=== PATIENT | female | born 1960 ===

== ENCOUNTER 2024-08-16 13:30 | Day surgery (SDC) | payer OTHER ==
[2024-08-12 09:49] VITALS: BP 131/78
[~2024-08-16] VITALS: Ht 157.5 cm; Wt 51.7 kg
[~2024-08-16 13:30] MED LIST: CRESTOR40 MG PO; SYNTHROID75 MCG PO; ZESTRIL5 MG PO
[2024-08-16] MEDS ORDERED: COLACE100 MG PO (15:53)
[2024-08-16] MEDS ORDERED: NEURONTIN300 MG PO (15:53)
[2024-08-16] MEDS ORDERED: TRAM1TAB98 PO (15:53)
[2024-08-16] MEDS ORDERED: CEFTRIAXONE SODIUM 2,000 MG VIAL IV ONE (17:15)
[2024-08-16] MEDS ORDERED: DIBUCAINE 30 GM TUBE RECTAL ONE (17:15)
[2024-08-16] MEDS ORDERED: BUPIVACAINE LIPOSOME/PF 266 MG/20 ML VIAL IJ ONE (17:15)
[2024-08-16] MEDS ORDERED: POVIDONE-IODINE 118 ML BOTT TOP ONE (17:15)
[2024-08-16] MEDS ORDERED: BUPIVACAINE HCL 30 ML VIAL IJ ONE (17:15)
[2024-08-16] MEDS ORDERED: POVIDONE-IODINE 118 ML BOTT TP ONE (17:15)
[2024-08-16] MEDS ORDERED: METRONIDAZOLE/SODIUM CHLORIDE 500 MG/100 ML PIGGYBACK IV ONE (17:15)
[2024-08-16] MEDS ORDERED: HEMOSTATIC MATRIX 1 KIT KIT TOP ONE (17:15)
== END 2024-08-16 21:15 | disposition home or self-care (01) ==
LOC: CIR.AMB 13:30
PROVIDERS: ATTEND Surgery
DX: K64.2 Third degree hemorrhoids (principal); K64.4 Residual hemorrhoidal skin tags; K62.5 Hemorrhage of anus and rectum